=== PATIENT | female | born 1955 | race African-American/Black ===

== ENCOUNTER 2021-10-12 01:25 | Day surgery (SDC) | payer MEDICARE, MEDICAID, SELFPAY ==
[2021-10-07 15:00] VITALS: BMI 16.6
--- NOTE | 2021-10-11 14:35 | PM.HPGS ---
History of Present Illness History of Present Illness Consent: Risks, benefits, and alternatives have been discussed and questions answered. Patient agrees to proceed with procedure. Chief complaint: abnor. CT scan, Abdom.pain, N&V, gastronomy tube Narrative: Alvaro Otto is a 66 year old female Was referred because of an abnormal CT scan and issues related to gastrostomy tube. The G-tube was placed a couple years ago at [facility]. It was recently replaced. Apparently there is leakage around the tube. Is used primarily at night for supplements. During the day she can eat a soft diet. Reportedly the G-tube was initially placed for gastroparesis with nausea. Because of vomiting, she is no longer getting tube feedings at night. there is also pain across the upper abdomen for the past few months worse with movement. A CT scan showed indeterminate soft tissue thickening and narrowing at the gastric outlet. There was a fluid-filled distal esophagus. A subsequent upper GI showed distal esophageal stenosis with contrast retention. She has a history of scleroderma Review of Systems Review of Systems: All systems reviewed & are unremarkable except as noted in HPI and below [facility] Past Medical History Medical History Abdominal pain Nausea and vomiting Scleroderma Social History Social History Smoking status: Former smoker Alcohol intake: never Substance use: never Substance use type: does not use Living arrangements: [facility] Additional living arrangements comments: longterm facility, shares a room Spiritual care concerns: No Meds Home Medications and Allergies Home Medications Medication Instructions Recorded Confirmed Type acetaminophen 325 mg capsule 325 mg PO Q6H PRN Fever 10/05/21 10/07/21 History baclofen 5 mg tablet 5 mg PO BID 10/05/21 10/07/21 History bisacodyl 10 mg rectal suppository 10 mg RECTAL PRN PRN Constipation 10/05/21 10/07/21 History esomeprazole magnesium 40 mg 40 mg PO DAILY 10/05/21 10/07/21 History capsule,delayed release fluoxetine 20 mg/5 mL (4 mg/mL) 20 mg PO DAILY 10/05/21 10/07/21 History oral solution gabapentin 250 mg/5 mL (5 mL) oral 100 mg PO TID 10/05/21 10/07/21 History solution lidocaine 4 % topical patch 1 patch topical BID PRN 10/05/21 10/07/21 History Incontinence nitroglycerin 2 % transdermal 1 inch transdermal BID 10/05/21 10/07/21 History ointment (Nitro-Bid) ondansetron HCl 4 mg tablet 4 mg PO Q8H 10/05/21 10/07/21 History oxycodone 10 mg tablet 10 mg PO Q8H 10/05/21 10/07/21 History polyethylene glycol 3350 17 gram 17 g PO EVERY OTHER DAY 10/05/21 10/07/21 History oral powder packet (Miralax) sennosides 8.6 mg tablet 8.6 mg PO DAILY 10/05/21 10/07/21 History tramadol 50 mg tablet 50 mg PO Q6H PRN Breakthrough Pain 10/05/21 10/07/21 History trazodone 50 mg tablet 50 mg PO QHS PRN Insomnia 10/05/21 10/07/21 History Allergies Allergy/AdvReac Type Severity Reaction Status Date / Time No Known Allergies Allergy Unverified 10/05/21 11:52 Exam Const: General: alert Orientation/consciousness: patient oriented x3 Resp: Auscultation: clear to auscultation bilaterally Cardio: Rhythm: regular rhythm GI: GI Palp: Yes Soft to palpation and No Tenderness to palpation present (GI) Neuro: General: patient oriented x3 Assessment and Plan Assessment and plan (1) Abnormal CT scan, gastrointestinal tract: Code(s): R93.3 - Abnormal findings on diagnostic imaging of other parts of digestive tract Status: Acute Assessment and Plan: EGD with possible biopsy or dilatation or cautery. (2) Nausea and vomiting: Code(s): R11.2 - Nausea with vomiting, unspecified Status: Acute
[2021-10-12 09:25] VITALS: BP 115/53; PULSE 90; RESP 18; TEMP 36.6; O2SAT 96
[2021-10-12] MEDS: LACTATED RINGERS 1,000 ML 150 ML IV CONT (09:42)
--- NOTE | 2021-10-12 09:53 | WPDANESEPPF ---
Anes - Initial Pre Proc Eval Procedure: Operation Date: 10/12/21 10:15 Proposed Procedures p Esophagogastroduodenoscopy - Rafael Fu MD Date/Time: 10/12/21 09:53 Surgeon: Rafael Fu MD Pre Op Diagnosis: abnor. CT scan, Abdom.pain, N&V, gastronomy tube Patient Data Age: 66 Gender: F Height: 1.63 m Weight: 98.3 kg Last Vital Signs Temp 97.8 F 10/12/21 09:25 Pulse 90 10/12/21 09:25 Resp 18 10/12/21 09:25 BP 115/53 L 10/12/21 09:25 Pulse Ox 96 10/12/21 09:25 O2 Del Method Room Air 10/12/21 09:25 Allergies Allergy/AdvReac Type Severity Reaction Status Date / Time No Known Allergies Allergy Verified 10/12/21 09:22 Home Medications Medication Instructions Recorded Confirmed Type acetaminophen 325 mg capsule 325 mg PO Q6H PRN Fever 10/05/21 10/12/21 History baclofen 5 mg tablet 5 mg PO BID 10/05/21 10/12/21 History bisacodyl 10 mg rectal suppository 10 mg RECTAL PRN PRN Constipation 10/05/21 10/12/21 History esomeprazole magnesium 40 mg 40 mg PO DAILY 10/05/21 10/12/21 History capsule,delayed release fluoxetine 20 mg/5 mL (4 mg/mL) 20 mg PO DAILY 10/05/21 10/12/21 History oral solution gabapentin 250 mg/5 mL (5 mL) oral 100 mg PO TID 10/05/21 10/12/21 History solution lidocaine 4 % topical patch 1 patch topical BID PRN 10/05/21 10/12/21 History Incontinence nitroglycerin 2 % transdermal 1 inch transdermal BID 10/05/21 10/12/21 History ointment (Nitro-Bid) ondansetron HCl 4 mg tablet 4 mg PO Q8H 10/05/21 10/12/21 History oxycodone 10 mg tablet 10 mg PO Q8H 10/05/21 10/12/21 History polyethylene glycol 3350 17 gram 17 g PO EVERY OTHER DAY 10/05/21 10/12/21 History oral powder packet (Miralax) sennosides 8.6 mg tablet 8.6 mg PO DAILY 10/05/21 10/12/21 History tramadol 50 mg tablet 50 mg PO Q6H PRN Breakthrough Pain 10/05/21 10/12/21 History trazodone 50 mg tablet 50 mg PO QHS PRN Insomnia 10/05/21 10/12/21 History Patient hx anesthesia problems: none Family hx anesthesia problems: none Results Review: All pre-operative results and documents have been reviewed as part of the pre-operative evaluation. [facility] Past Medical History Medical History Abdominal pain Nausea and vomiting Scleroderma Social History Social History Smoking status: Former smoker Alcohol intake: never Substance use: never Substance use type: does not use Living arrangements: [facility] Additional living arrangements comments: [facility], shares a room Spiritual care concerns: No Anes - Eval Final PreProcedure Day of Procedure 10/12/21 09:53 Patient weight: normal Heart: regular rate and rhythm Lungs: clear to auscultation Airway: Mallampati scale class III Neurological: alert and oriented Last oral intake: >/= 8 hours ASA classification: III Emergent: no Anesthetic plan: proceed Anesthesia type and monitoring: general GIVS and standard monitoring Results Review: All pre-operative results and documents have been reviewed as part of the pre-operative evaluation. Informed Consent: The patient's anesthetic plan and its attendant risks and benefits were discussed with the patient/family/POA. Questions were solicited and answers provided to the satisfaction of the patient/family/POA.
[2021-10-12 10:31] VITALS: BP 124/70; PULSE 90; RESP 18; O2SAT 100
[2021-10-12 10:41] VITALS: BP 125/68; PULSE 88; RESP 21; O2SAT 99
[2021-10-12 10:51] VITALS: BP 124/72; PULSE 92; RESP 25; O2SAT 100
== END 2021-10-12 11:25 | disposition home or self-care (01) ==
PROVIDERS: Visit Provider Internal Medicine Gastroenterology
PROC: 0DJ08ZZ Inspection of Upper Intestinal Tract, Via Natural or Artificial Opening Endoscopic (ICD-10-PCS; CPT 43235; principal; 2021-10-12 10:15)
DX: K22.2 Esophageal obstruction (principal); K22.10 Ulcer of esophagus without bleeding; R11.2 Nausea with vomiting, unspecified; K31.84 Gastroparesis; Z93.1 Gastrostomy status; M34.9 Systemic sclerosis, unspecified; Z87.891 Personal history of nicotine dependence
CPT/HCPCS: 43249; C1726; J2704; J7120

== ENCOUNTER 2021-11-23 00:33 | Day surgery (SDC) | payer MEDICARE, MEDICAID, SELFPAY ==
[2021-11-08 14:43] VITALS: BMI 14.6
--- NOTE | 2021-11-22 15:43 | PM.HPGS ---
History of Present Illness History of Present Illness Consent: Risks, benefits, and alternatives have been discussed and questions answered. Patient agrees to proceed with procedure. Chief complaint: esophageal stricture Narrative: Alvaro Otto is a 66 year old female who was recently found to have a severe, high-grade stricture of the distal esophagus accompanied by extensive ulceration. She was able to be dilated up to only 7 mm at that time. She has been taking esomeprazole 40 mg daily. She receives the majority of her nutrition via feeding tube. Review of Systems Review of Systems: All systems reviewed & are unremarkable except as noted in HPI and below [facility] Past Medical History Medical History Abdominal pain Nausea and vomiting Scleroderma Social History Social History Smoking status: Never smoker Alcohol intake: never Substance use: never Substance use type: does not use Living arrangements: [facility] Additional living arrangements comments: sister works at her [facility] Spiritual care concerns: No Meds Home Medications and Allergies Home Medications Medication Instructions Recorded Confirmed Type acetaminophen 325 mg capsule 325 mg PO Q6H PRN Fever 10/05/21 11/08/21 History baclofen 5 mg tablet 5 mg PO BID 10/05/21 11/08/21 History bisacodyl 10 mg rectal suppository 10 mg RECTAL PRN PRN Constipation 10/05/21 11/08/21 History esomeprazole magnesium 40 mg 40 mg PO DAILY 10/05/21 11/08/21 History capsule,delayed release fluoxetine 20 mg/5 mL (4 mg/mL) 20 mg PO DAILY 10/05/21 11/08/21 History oral solution gabapentin 250 mg/5 mL (5 mL) oral 100 mg PO TID 10/05/21 11/08/21 History solution lidocaine 4 % topical patch 1 patch topical BID PRN 10/05/21 11/08/21 History Incontinence nitroglycerin 2 % transdermal 1 inch transdermal BID 10/05/21 11/08/21 History ointment (Nitro-Bid) ondansetron HCl 4 mg tablet 4 mg PO Q8H 10/05/21 11/08/21 History oxycodone 10 mg tablet 10 mg PO Q8H 10/05/21 11/08/21 History polyethylene glycol 3350 17 gram 17 g PO EVERY OTHER DAY 10/05/21 11/08/21 History oral powder packet (Miralax) sennosides 8.6 mg tablet 8.6 mg PO DAILY 10/05/21 11/08/21 History tramadol 50 mg tablet 50 mg PO Q6H PRN Breakthrough Pain 10/05/21 11/08/21 History trazodone 50 mg tablet 50 mg PO QHS PRN Insomnia 10/05/21 11/08/21 History aluminum-mag hydroxide-simethicone 5 ml PO DAILY 11/08/21 11/08/21 History 200 mg-200 mg-20 mg/5 mL oral susp diphenhydramine HCl 25 mg capsule 25 mg PO HS 11/08/21 11/08/21 History (Benadryl) metoclopramide HCl 5 mg/5 mL oral 5 mg feeding tube QID 11/08/21 11/08/21 History solution Allergies Allergy/AdvReac Type Severity Reaction Status Date / Time No Known Allergies Allergy Verified 11/23/21 07:51 Exam Const: General: alert Orientation/consciousness: patient oriented x3 Resp: Auscultation: clear to auscultation bilaterally Cardio: Rhythm: regular rhythm GI: GI Palp: Yes Soft to palpation and No Tenderness to palpation present (GI) Neuro: General: patient oriented x3 Assessment and Plan Assessment and plan (1) Dysphagia: Code(s): R13.10 - Dysphagia, unspecified Status: Acute Assessment and Plan: EGD with possible biopsy or dilatation or cautery.
[2021-11-23 07:54] VITALS: BP 116/62; PULSE 99; RESP 18; TEMP 36.8; O2SAT 99
[2021-11-23] MEDS: LACTATED RINGERS 1,000 ML 150 ML IV CONT (08:19)
--- NOTE | 2021-11-23 08:56 | WPDANESEPPF ---
Anes - Initial Pre Proc Eval Procedure: Operation Date: 11/23/21 09:00 Proposed Procedures p Esophagogastroduodenoscopy - Rafael Fu MD Date/Time: 11/23/21 08:56 Surgeon: Rafael Fu MD Pre Op Diagnosis: esophageal stricture Patient Data Age: 66 Gender: F Height: 1.75 m Weight: 43 kg Last Vital Signs Temp 98.3 F 11/23/21 07:54 Pulse 99 11/23/21 07:54 Resp 18 11/23/21 07:54 BP 116/62 11/23/21 07:54 Pulse Ox 99 11/23/21 07:54 O2 Del Method Room Air 11/23/21 07:54 Allergies Allergy/AdvReac Type Severity Reaction Status Date / Time No Known Allergies Allergy Verified 11/23/21 07:51 Home Medications Medication Instructions Recorded Confirmed Type acetaminophen 325 mg capsule 325 mg PO Q6H PRN Fever 10/05/21 11/08/21 History baclofen 5 mg tablet 5 mg PO BID 10/05/21 11/08/21 History bisacodyl 10 mg rectal suppository 10 mg RECTAL PRN PRN Constipation 10/05/21 11/08/21 History esomeprazole magnesium 40 mg 40 mg PO DAILY 10/05/21 11/08/21 History capsule,delayed release fluoxetine 20 mg/5 mL (4 mg/mL) 20 mg PO DAILY 10/05/21 11/08/21 History oral solution gabapentin 250 mg/5 mL (5 mL) oral 100 mg PO TID 10/05/21 11/08/21 History solution lidocaine 4 % topical patch 1 patch topical BID PRN 10/05/21 11/08/21 History Incontinence nitroglycerin 2 % transdermal 1 inch transdermal BID 10/05/21 11/08/21 History ointment (Nitro-Bid) ondansetron HCl 4 mg tablet 4 mg PO Q8H 10/05/21 11/08/21 History oxycodone 10 mg tablet 10 mg PO Q8H 10/05/21 11/08/21 History polyethylene glycol 3350 17 gram 17 g PO EVERY OTHER DAY 10/05/21 11/08/21 History oral powder packet (Miralax) sennosides 8.6 mg tablet 8.6 mg PO DAILY 10/05/21 11/08/21 History tramadol 50 mg tablet 50 mg PO Q6H PRN Breakthrough Pain 10/05/21 11/08/21 History trazodone 50 mg tablet 50 mg PO QHS PRN Insomnia 10/05/21 11/08/21 History aluminum-mag hydroxide-simethicone 5 ml PO DAILY 11/08/21 11/08/21 History 200 mg-200 mg-20 mg/5 mL oral susp diphenhydramine HCl 25 mg capsule 25 mg PO HS 11/08/21 11/08/21 History (Benadryl) metoclopramide HCl 5 mg/5 mL oral 5 mg feeding tube QID 11/08/21 11/08/21 History solution Patient hx anesthesia problems: none Family hx anesthesia problems: none Results Review: All pre-operative results and documents have been reviewed as part of the pre-operative evaluation. [facility] Past Medical History Medical History Abdominal pain Nausea and vomiting Scleroderma Social History Social History Smoking status: Never smoker Alcohol intake: never Substance use: never Substance use type: does not use Living arrangements: [facility] Additional living arrangements comments: sister works at her [facility] Spiritual care concerns: No Anes - Eval Final PreProcedure Day of Procedure 11/23/21 08:56 Patient weight: normal Heart: regular rate and rhythm Lungs: clear to auscultation Airway: Mallampati scale class III Neurological: alert and oriented Last oral intake: >/= 8 hours ASA classification: III Emergent: no Anesthetic plan: proceed Anesthesia type and monitoring: general GIVS and standard monitoring Results Review: All pre-operative results and documents have been reviewed as part of the pre-operative evaluation. Informed Consent: The patient's anesthetic plan and its attendant risks and benefits were discussed with the patient/family/POA. Questions were solicited and answers provided to the satisfaction of the patient/family/POA.
[2021-11-23] MEDS: BENZOCAINE (*SP) 60 ML SPRAY CAN (HURRICAINE) 1 SPRAY MUCOUS MEM (09:01)
[2021-11-23 09:15] VITALS: BP 82/50; PULSE 91; RESP 21; O2SAT 75
[2021-11-23 09:23] VITALS: BP 83/52; PULSE 94; RESP 18; O2SAT 93
[2021-11-23 09:35] VITALS: BP 106/64; PULSE 82; RESP 26; O2SAT 91
== END 2021-11-23 09:47 | disposition home or self-care (01) ==
PROVIDERS: Visit Provider Internal Medicine Gastroenterology
PROC: 0DJ08ZZ Inspection of Upper Intestinal Tract, Via Natural or Artificial Opening Endoscopic (ICD-10-PCS; CPT 43235; principal; 2021-11-23 09:00)
DX: K22.2 Esophageal obstruction (principal); K21.00 Gastro-esophageal reflux disease with esophagitis, without bleeding; M34.9 Systemic sclerosis, unspecified
CPT/HCPCS: 43249; C1726; J2704; J7120